=== PATIENT | male | born 1990 | race Caucasian/White ===

== ENCOUNTER 2025-07-23 16:23 | Emergency (ER) | payer SELFPAY ==
[~2025-07-23] VITALS: Ht 172.7 cm; Wt 77.0 kg
[2025-07-23 16:28] VITALS: TEMP 99
[2025-07-23] MEDS ORDERED: PROM-223 PO (17:13)
[2025-07-23 17:20] VITALS: BP 120/70; PULSE 97; RESP 18; O2SAT 99
[2025-07-23] MEDS: PROMETHAZINE HCL 25 MG TABLET PO ONE (17:30)
== END 2025-07-23 18:06 | disposition home or self-care (01) ==
LOC: EMS 16:23
DX: F11.10 Opioid abuse, uncomplicated (principal)
CPT/HCPCS: 99283